=== PATIENT | male | born 1975 | race Caucasian/White ===

== ENCOUNTER 2016-08-01 10:44 | Emergency (ER) | payer MEDICAID, OTHER ==
[2016-08-01 11:01] VITALS: PULSE 78; RESP 18; TEMP 98; O2SAT 97
--- NOTE | 2016-08-01 11:43 | UCPHY ---
H & P Time Seen by Provider: 08/01/16 11:32 Patient Type: Established HPI/ROS: CHIEF COMPLAINT: Knee injury HISTORY OF PRESENT ILLNESS: 41-year-old male slipped when he was getting out of the pool of the [facility], impacting the medial side of his right knee. Presents with pain and swelling along the medial knee. Patient is able to bear some weight. Painful when he tries to flex. No other injury. Otherwise well. REVIEW OF SYSTEMS: Aside from elements discussed in the HPI, a comprehensive 10-point review of systems was reviewed and is negative. PAST MEDICAL HISTORY: Patient denies. SOCIAL HISTORY: Nonsmoker. Smoking Status: Never smoked Physical Exam: GENERAL APPEARANCE: Pleasant, alert, conversant. FOCUSED EXAM OF right lower extremity: Swelling is visible along the medial aspect of the knee. Tenderness to palpation at the proximal tibia. Minimal joint line tenderness. No warmth. Pain with flexion. The no pain with varus or valgus stress. No laxity. Distal neurovascularly intact. Constitutional: Initial Vital Signs Temperature (C) 36.6 C 08/01/16 10:59 Heart Rate 78 08/01/16 10:59 Respiratory Rate 18 08/01/16 10:59 Blood Pressure 115/62 08/01/16 10:59 O2 Sat (%) 97 08/01/16 10:59 O2 Delivery Mode Room Air Allergies/Adverse Reactions: No Known Allergies Allergy (Unverified 09/26/14 18:53) Home Medications: Medication Instructions Recorded Hydrocodone/APAP 5/325 [Ellston 1 tab PO Q6H PRN #10 tab 08/01/16 5/325 (RX)] Medical Decision Making - Diagnostics Imaging: Xray: Right knee x-ray was obtained. I viewed the images myself on the PACS system. My interpretation of the images is: No acute findings. The radiology interpretation is: Pending. I discussed the results with the patient. ED Course/Re-evaluation: No fracture seen on x-ray. Patient given information regarding contusions and sprain. Roderick wrap provided. Departure - Departure Disposition: Home, Routine, Self-Care Clinical Impression: Knee contusion Qualifiers: Encounter type: initial encounter Laterality: right Qualified Code(s): S80.01XA - Contusion of right knee, initial encounter Condition: Good Instructions: Knee Pain (ED), Contusion in Adults (ED) Additional Instructions: I recommend Ibuprofen (Motrin, Advil) or Naproxen Sodium (Aleve) for pain and anti-inflammatory effects. You may take either one, but do not take both. Your dose is: Ibuprofen 600 mg every 6-8 hours with food. OR Naproxen Sodium (Aleve) 220 mg every 12 hours. You may take Ell[place] as needed for more severe pain. Please use the Roderick wrap in order to provide stability and to decrease the swelling. Apply ice for 20-30 minutes every 2-3 hours for the next 48 hours. Follow up with orthopedic surgeon if you're not improving as expected. Referrals: Daniel Anton MD [Medical Doctor] - As per Instructions Prescriptions: Hydrocodone/APAP 5/325 [Ellston 5/325 (RX)] 1 tab PO Q6H PRN #10 tab PRN Reason: Pain - PQRS PQRS Measurement: Not applicable
[2016-08-01 12:43] VITALS: BP 120/62
== END 2016-08-01 12:41 | disposition home or self-care (01) ==
LOC: CED 10:44
DX: S80.01XA Contusion of right knee, initial encounter (principal); Y93.11 Activity, swimming; W01.0XXA Fall on same level from slipping, tripping and stumbling without subsequent striking against object, initial encounter; Y92.39 Other specified sports and athletic area as the place of occurrence of the external cause
CPT/HCPCS: 73564-PO; 99214-PO; G0463-PO